=== PATIENT | male | born 1990 | race Caucasian/White ===

== ENCOUNTER 2018-01-31 17:26 | Emergency (ER) | payer OTHER ==
[2018-01-31 18:29] VITALS: BP 138/86
--- NOTE | 2018-01-31 19:26 | UC ---
UC General HPI - HPI Summary HPI Summary: pt returned from [facility] on 01/22. he has had watery diarrhea ever since he came home. he describes this as watery with no blood, fever or abdominal pain. no hx IBD. no others on the trip are ill. drank bottled water and ate prepared foods. did tx with malarone to prevent malaria. - History of Current Complaint Hx Obtained From: Patient Onset/Duration: Sudden Onset Timing: Constant Pain Intensity: 0 Aggravating: occurs more after meals Alleviating: nothing Associated Signs & Symptoms: Positive: Diarrhea. Negative: Abdominal Pain, Fever, Headache, Melena, Nausea, Vomiting, Weakness <Lachelle Mares - Last Filed: 01/31/18 19:21> <Julianna Pfeiffer - Last Filed: 01/31/18 20:57> - History of Current Complaint Chief Complaint: UCGI Stated Complaint: DIARRHEA Time Seen by Provider: 01/31/18 18:57 - Allergy/Home Medications Allergies/Adverse Reactions: Allergies Allergy/AdvReac Type Severity Reaction Status Date / Time No Known Allergies Allergy Verified 01/31/18 18:30 PMH/Surg Hx/FS Hx/Imm Hx Previously Healthy: Yes - Surgical History Surgical History: Yes Surgery Procedure, Year, and Place: UCL RECONSTRUCTIVE SX--LEFT SX - Social History Occupation: Student Alcohol Use: Occasionally Substance Use Type: None Smoking Status (MU): Never Smoked Tobacco - Immunization History Vaccination Up to Date: Yes <Lachelel Mares - Last Filed: 01/31/18 19:21> Review of Systems Gastrointestinal: Diarrhea Is Patient Immunocompromised?: No All Other Systems Reviewed And Are Negative: Yes <Lachelle Mares - Last Filed: 01/31/18 19:21> Physical Exam Triage Information Reviewed: Yes Appearance: Well-Appearing Vital Signs: Initial Vital Signs Temp 98.1 F 01/31/18 18:24 Pulse 71 01/31/18 18:24 Resp 18 01/31/18 18:24 BP 138/86 01/31/18 18:24 Pulse Ox 100 01/31/18 18:24 Vital Signs Reviewed: Yes Eye Exam: Normal ENT: Positive: Normal ENT inspection Neck: Positive: Supple, Nontender, No Lymphadenopathy Respiratory: Positive: Lungs clear, Normal breath sounds Cardiovascular: Positive: RRR, No Murmur Abdomen Description: Positive: Nontender, No Organomegaly, Soft Bowel Sounds: Positive: Present Musculoskeletal: Positive: ROM Intact Neurological: Positive: Alert Psychological: Positive: Age Appropriate Behavior Skin Exam: Normal <MaresLachelle - Last Filed: 01/31/18 19:21> Vital Signs: Initial Vital Signs Temp 98.1 F 01/31/18 18:24 Pulse 71 01/31/18 18:24 Resp 18 01/31/18 18:24 BP 138/86 01/31/18 18:24 Pulse Ox 100 01/31/18 18:24 <Julianna Pfeiffer - Last Filed: 01/31/18 20:57> Diagnostics - Laboratory Diagnostic Studies Completed/Ordered: stool O&P plus cultures are pending <Lachelle Mares - Last Filed: 01/31/18 19:21> Course/Dx - Course Course Of Treatment: non toxic, no acute abdomen, will send stool for O&P plus culture and tx for travelers diarrhea given hx. - Differential Dx - Multi-Symptom Provider Diagnoses: Diarrhea <Lachelle Mares - Last Filed: 01/31/18 19:21> Discharge - Sign-Out/Discharge Documenting (check all that apply): Discharge - Billing Disposition and Condition Condition: STABLE Disposition: HOME <Lachelle Mares - Last Filed: 01/31/18 19:21> - Billing Disposition and Condition Condition: STABLE Disposition: HOME <Julianna Pfeiffer - Last Filed: 01/31/18 20:57> - Discharge Plan Condition: Stable Disposition: HOME Prescriptions: Ciprofloxacin TAB* [Cipro 500 MG TAB*] 500 mg PO BID 3 Days #6 tab Patient Education Materials: Traveler's Diarrhea (ED), Acute Diarrhea (ED) Referrals: Jose Douglass MD [Primary Care Provider] - If Needed Additional Instructions: FOLLOW UP [facility] 3-5 DAYS FOR RECHECK OR SOONER IF WORSE. Attestation Statement User Type: Provider - I was available for consult. This patient was seen by the advanced practice provider. The patient was not presented to, seen by, or examined by me.-Clement <Julianna Pfeiffer - Last Filed: 01/31/18 20:57>
== END 2018-01-31 20:00 | disposition home or self-care (01) ==
LOC: UCCORT 17:26
DX: R19.7 Diarrhea, unspecified (principal)
CPT/HCPCS: 99202; G0463